=== PATIENT | male | born 1930 | race Caucasian/White ===

== ENCOUNTER 2017-01-30 19:32 | Emergency (ER) | payer MEDICARE, OTHER ==
[2017-01-30 19:52] VITALS: BP 132/76
--- NOTE | 2017-01-30 20:04 | EDM.PDOC ---
ED HPI Trauma - General Chief Complaint: Upper Extremity Injury/Pain Stated Complaint: RIGHT HAND INJURY Time Seen by Provider: 01/30/17 19:59 Source: Reports: Patient History Limitations: Reports: No limitations - History of Present Illness INITIAL COMMENTS - FREE TEXT/NARRATIVE: 86-year-old male presents the ED for evaluation of injury to the dorsal left hand. He reports that he fell twice today injuring the dorsal aspect with associated bruising and swelling. He denies hurting any other body parts. To carry his head neck chest or knees. Days he uses a cane to help with his balance but his balance is becoming worse and his legs are getting weaker. Very prone to falling. Symptom Onset Date: 01/30/17 Symptom Onset Time: 14:00 Occurred When: this evening Occurred Where: home Method of Injury: fall Severity: moderate Pain/Injury Location: Reports: upper extremity, left (Left dorsal hand) Associated Symptoms: Reports: no other symptoms Allergies/ADRs: Allergies amoxicillin Allergy (Verified 01/30/17 19:52) Cannot Remember levofloxacin [From Levaquin] Allergy (Verified 01/30/17 19:52) Cannot Remember nitroglycerin Allergy (Verified 01/30/17 19:52) Cannot Remember sulfamethoxazole [From Bactrim] Allergy (Verified 01/30/17 19:52) Cannot Remember tramadol Allergy (Verified 01/30/17 19:52) Rash trimethoprim [From Bactrim] Allergy (Verified 01/30/17 19:52) Cannot Remember meperidine HCl [From Demerol] Adverse Reaction (Verified 01/30/17 19:52) Nausea Home Medications: Ambulatory Orders Amitriptyline [Elavil] 20 mg PO BEDTIME 05/02/16 [Confirmed 05/02/16] Aspirin 81 mg PO DAILY 05/02/16 [Confirmed 05/02/16] B Complex With Vitamin C [B-Complex with C] 1 tab PO BEDTIME 05/02/16 [ Confirmed 05/02/16] ClonazePAM [KlonoPIN] 0.5 mg PO BEDTIME 05/02/16 [Confirmed 05/02/16] Clopidogrel [Plavix] 75 mg PO DAILY 05/02/16 [Confirmed 05/02/16] Docusate Sodium [Stool Softener] 100 mg PO BID 05/02/16 [Confirmed 05/02/16] Gabapentin [Neurontin] 200 mg PO TID 05/02/16 [Confirmed 05/02/16] Lactobacillus Acidophilus [Acidophilus] 1 cap PO BEDTIME 05/02/16 [Confirmed 10/17] Levothyroxine 0 mcg PO DAILY 05/02/16 [Confirmed 05/02/16] Lutein [Lutein] 10 mg PO DAILY 05/02/16 [Confirmed 05/02/16] Magnesium 0 mg PO DAILY 05/02/16 [Confirmed 05/02/16] Multivitamin [Multivitamins] 1 cap PO DAILY 05/02/16 [Confirmed 05/02/16] Naproxen Sodium [Aleve] 220 mg PO BID 05/02/16 [Confirmed 05/02/16] Pantoprazole [Protonix] 40 mg PO DAILY 05/02/16 [Confirmed 05/02/16] Pravastatin [Pravachol] 0 mg PO DAILY 05/02/16 [Confirmed 05/02/16] Prevagen 0 mg PO DAILY 05/02/16 [Confirmed 05/02/16] Statinzyme 1 tab PO BEDTIME 05/02/16 [Confirmed 05/02/16] amLODIPine [Norvasc] 2.5 mg PO DAILY 05/02/16 [Confirmed 05/02/16] Past Medical History Other HEENT History: Please see Health History scanned in chart. Cardiovascular History: Reports: High cholesterol, Hypertension Gastrointestinal History: Reports: Chronic constipation Neurological History: Reports: Alzheimers disease (Organic brain disease.), CVA , Neuropathy, peripheral Other Neuro History: right side stroke. Endocrine/Metabolic History: Reports: Hypothyroidism Oncologic (Cancer) History: Reports: Bladder - Past Surgical History GI Surgical History: Reports: Appendectomy Social & Family History - Tobacco Use Smoking Status *Q: Never Smoker - Recreational Drug Use Recreational Drug Use: No - Living Situation & Occupation Living situation: Reports: Occupation: retired Review of Systems - Review of Systems Review Of Systems: See Below Constitutional: Reports: no symptoms Eyes: Reports: other (Vision is poor.) Ears: Reports: no symptoms Nose: Reports: no symptoms Mouth/Throat: Reports: no symptoms Respiratory: Reports: Shortness of Breath. Denies: Wheezing (On exertion), Pleuritic Chest Pain, Cough, Sputum Cardiovascular: Denies: chest pain, edema, irregular heart rate, lightheadedness GI/Abdominal: Reports: No symptoms, Constipation (No problems with constipation) Genitourinary: Reports: other (Urinary frequency.) Musculoskeletal: Reports: shoulder pain, back pain, joint pain (Knees and hips at times.) Skin: Reports: other (Current swelling dorsal left hand.) Neurological: Reports: Pre-Existing Deficit, Difficulty Walking, Gait Disturbance (Off balance.). Denies: Paresthesia, Syncope (Previous CVA.), Tingling, Weakness Psychiatric: Reports: no symptoms Trauma Exam - Physical Exam Exam: See Below Exam Limited By: No limitations General Appearance: Reports: alert, WD/WN, no apparent distress Head: Reports: atraumatic, normocephalic Throat/Mouth: Reports: Normal inspection, Normal lips, Normal teeth, Normal oropharynx Neck: Reports: non-tender, full range of motion, normal alignment, normal inspection Respiratory Exam: Reports: no respiratory distress, lungs clear, normal breath sounds, no accessory muscle use Cardiovascular: Reports: regular rate, rhythm, no edema GI/Abdominal: Reports: normal bowel sounds, soft, non tender, no organomegaly Extremities: Reports: other (Injuries to the dorsal aspect of his left hand. He has 3 areas of large ecchymoses. One area of skin tear. Approximately 1 cm x 1 cm. It is very superficial. Covered with bandage present. No active bleeding.) Neurologic: Reports: no motor/sensory deficits, alert, normal mood/affect, oriented x 3 Skin: Reports: Normal color, Warm/dry - Buddy Coma Score Best Eye Response (Buddy): (4) open spontaneously Best Verbal Response (Buddy): (5) oriented Best Motor Response (Buddy): (6) obeys commands Buddy Total: 15 Course - Vital Signs Last Recorded V/S: Last Vital Signs Temp 36.3 C 01/30/17 19:50 Pulse 84 01/30/17 19:50 Resp 18 01/30/17 19:50 BP 132/76 01/30/17 19:50 Pulse Ox 97 01/30/17 19:50 - Orders/Labs/Meds Orders: Active Orders 24 hr Category Date Time Status Hand Comp Min 3V Lt [CR] Stat Exams 01/30/17 19:59 Taken - Radiology Interpretation Free Text/Narrative:: 86-year-old male presents the ED after falling and injuring his left dorsal hand today. He did a couple of times a week not sure how he injured it for the most part. This blunt trauma against an object primarily. He can make a fist however. Swelling is to the dorsal aspect of hand no evidence of injuries to the wrist. Pain is mostly located over the second metacarpal. X-ray of the hand to be obtained. - Re-Assessments/Exams Free Text/Narrative Re-Assessment/Exam: 01/30/17 20:30 x-ray of his left hand reveals osteopenic bones but no fractures identified. His tetanus toxoid is up to date. Departure - Departure Time of Disposition: 20:38 Disposition: Home, Self-Care 01 Condition: fair Clinical Impression: Contusion of multiple sites of left hand and fingers Qualifiers: Encounter type: initial encounter Qualified Code(s): S60.222A - Contusion of left hand, initial encounter Referrals: Maurisio Perry MD [Primary Care Provider] - Forms: ED Department Discharge Additional Instructions: Evaluation in the emergency department today in regards to blunt trauma to the dorsal aspect of the left hand today. Total areas of bruising appreciated and a superficial 1 cm x 1 cm skin tear in the mid aspect of the dorsal hand. X-ray of the hand was done to ensure no bony injuries and no fractures were identified. Treatment is to daily cleanse the wound with soap and water and then apply topical antibiotic such as bacitracin or Polysporin to the once daily and cover with a bandage to keep clean until healed. This will likely be 7 or 8 days. - My Orders Last 24 Hours: My Active Orders 01/30/17 19:59 Hand Comp Min 3V Lt [CR] Stat - Assessment/Plan Last 24 Hours: My Active Orders 01/30/17 19:59 Hand Comp Min 3V Lt [CR] Stat
--- NOTE | 2017-01-31 07:10 | CR ---
Left hand: Four views of the left hand were obtained. Comparison: No previous left hand exam. No fracture, dislocation or other bony abnormality is seen. Impression: 1. No abnormality is identified on left hand study. Diagnostic code #1
== END 2017-01-30 20:48 | disposition home or self-care (01) ==
LOC: JD.ED 19:32
DX: S60.222A Contusion of left hand, initial encounter (principal); E78.00 Pure hypercholesterolemia, unspecified; I10 Essential (primary) hypertension; G30.9 Alzheimer's disease, unspecified; Z86.73 Personal history of transient ischemic attack (TIA), and cerebral infarction without residual deficits; E03.9 Hypothyroidism, unspecified; Z79.82 Long term (current) use of aspirin; Z79.899 Other long term (current) drug therapy; Z88.8 Allergy status to other drugs, medicaments and biological substances; Z90.49 Acquired absence of other specified parts of digestive tract; Z88.1 Allergy status to other antibiotic agents; Z88.5 Allergy status to narcotic agent; Z88.2 Allergy status to sulfonamides; W19.XXXA Unspecified fall, initial encounter; Y92.009 Unspecified place in unspecified non-institutional (private) residence as the place of occurrence of the external cause
CPT/HCPCS: 73130-26-LT; 73130-LT; 99282; 99284

== ENCOUNTER 2017-01-31 18:57 | Emergency (ER) | payer MEDICARE, OTHER ==
[2017-01-31 19:07] VITALS: BP 141/79
[2017-01-31] MEDS ORDERED: Cephalexin 500 MG Cap PO ONE (19:24)
--- NOTE | 2017-01-31 19:25 | EDM.PDOC ---
ED HPI Trauma - General Chief Complaint: Upper Extremity Injury/Pain Stated Complaint: REPEAT VISIT FOR LEFT HAND INJURY Time Seen by Provider: 01/31/17 19:09 Source: Reports: Patient, Family (Spouse), RN notes reviewed - History of Present Illness INITIAL COMMENTS - FREE TEXT/NARRATIVE: 86-year-old gentleman fell in the bathroom yesterday afternoon about 28 hours ago injuring his left hand. He did suffer a small superficial laceration. He had a fair amount of bruising so they did come into the ED yesterday to have that checked out. The hand was x-rayed and there was no fracture. Today they returned because of increased redness and increased bruising. The pain is almost gone. The laceration is a bit open but so far there's been no drainage. Allergies/ADRs: Allergies amoxicillin Allergy (Verified 01/31/17 19:05) Cannot Remember levofloxacin [From Levaquin] Allergy (Verified 01/31/17 19:05) Cannot Remember nitroglycerin Allergy (Verified 01/31/17 19:05) Cannot Remember sulfamethoxazole [From Bactrim] Allergy (Verified 01/31/17 19:05) Cannot Remember tramadol Allergy (Verified 01/31/17 19:05) Rash trimethoprim [From Bactrim] Allergy (Verified 01/31/17 19:05) Cannot Remember meperidine HCl [From Demerol] Adverse Reaction (Verified 01/31/17 19:05) Nausea Home Medications: Ambulatory Orders Amitriptyline [Elavil] 20 mg PO BEDTIME 05/02/16 [Confirmed 05/02/16] Aspirin 81 mg PO DAILY 05/02/16 [Confirmed 05/02/16] B Complex With Vitamin C [B-Complex with C] 1 tab PO BEDTIME 05/02/16 [ Confirmed 05/02/16] ClonazePAM [KlonoPIN] 0.5 mg PO BEDTIME 05/02/16 [Confirmed 05/02/16] Clopidogrel [Plavix] 75 mg PO DAILY 05/02/16 [Confirmed 05/02/16] Docusate Sodium [Stool Softener] 100 mg PO BID 05/02/16 [Confirmed 05/02/16] Gabapentin [Neurontin] 200 mg PO TID 05/02/16 [Confirmed 05/02/16] Lactobacillus Acidophilus [Acidophilus] 1 cap PO BEDTIME 05/02/16 [Confirmed 10/17] Levothyroxine 0 mcg PO DAILY 05/02/16 [Confirmed 05/02/16] Lutein [Lutein] 10 mg PO DAILY 05/02/16 [Confirmed 05/02/16] Magnesium 0 mg PO DAILY 05/02/16 [Confirmed 05/02/16] Multivitamin [Multivitamins] 1 cap PO DAILY 05/02/16 [Confirmed 05/02/16] Naproxen Sodium [Aleve] 220 mg PO BID 05/02/16 [Confirmed 05/02/16] Pantoprazole [Protonix] 40 mg PO DAILY 05/02/16 [Confirmed 05/02/16] Pravastatin [Pravachol] 0 mg PO DAILY 05/02/16 [Confirmed 05/02/16] Prevagen 0 mg PO DAILY 05/02/16 [Confirmed 05/02/16] Statinzyme 1 tab PO BEDTIME 05/02/16 [Confirmed 05/02/16] amLODIPine [Norvasc] 2.5 mg PO DAILY 05/02/16 [Confirmed 05/02/16] Cephalexin 500 mg PO Q8HR #14 capsule 01/31/17 Past Medical History Other HEENT History: Please see Health History scanned in chart. Cardiovascular History: Reports: High cholesterol, Hypertension Gastrointestinal History: Reports: Chronic constipation Neurological History: Reports: Alzheimers disease, CVA, Neuropathy, peripheral Other Neuro History: right side stroke. Endocrine/Metabolic History: Reports: Hypothyroidism Oncologic (Cancer) History: Reports: Bladder - Past Surgical History GI Surgical History: Reports: Appendectomy Social & Family History - Tobacco Use Smoking Status *Q: Never Smoker - Caffeine Use Caffeine Use: Reports: Coffee - Recreational Drug Use Recreational Drug Use: No - Living Situation & Occupation Living situation: Reports: Occupation: retired Review of Systems - Review of Systems Review Of Systems: See Below Constitutional: Denies: chills, fever Mouth/Throat: Reports: no symptoms Respiratory: Reports: No Symptoms Cardiovascular: Denies: chest pain GI/Abdominal: Denies: Abdominal pain, Nausea, Vomiting Skin: Reports: bruising (Left hand), erythema (Left hand) Neurological: Reports: No Symptoms Trauma Exam - Physical Exam Exam: See Below General Appearance: Reports: alert, no apparent distress Head: Reports: atraumatic Throat/Mouth: Reports: Normal inspection Respiratory Exam: Reports: no respiratory distress Cardiovascular: Reports: regular rate, rhythm Extremities: Reports: other (Small superficial mildly keeping laceration dorsum of left hand. Surrounded by moderate erythema and does moderate ecchymosis spreading over the dorsum of the hand as well. No major swelling or tenderness. Good finger range of motion. No proximal streaking. No drainage at this time.) Course - Vital Signs Last Recorded V/S: Last Vital Signs Temp 97.9 F 01/31/17 19:05 Pulse 84 01/31/17 19:05 Resp 18 01/31/17 19:05 BP 141/79 H 01/31/17 19:05 Pulse Ox 96 01/31/17 19:05 - Orders/Labs/Meds Meds: Medications Discontinued Medications Generic Name Dose Route Start Last Admin Trade Name Blanca PRN Reason Stop Dose Admin Cephalexin 500 mg 01/31/17 19:24 01/31/17 19:31 Keflex PO 01/31/17 19:25 500 mg ONETIME ONE Administration - Re-Assessments/Exams Free Text/Narrative Re-Assessment/Exam: 01/31/17 20:04 Increased bruising is to be expected. I discussed this with patient and his . Is moderate erythema around the laceration is well, difficult to exclude a small component of early cellulitis. We will put him on cephalexin 500 mg 3 times a day for 5 days. Departure - Departure Time of Disposition: 19:35 Disposition: Home, Self-Care 01 Condition: fair Clinical Impression: Cellulitis of hand Hand contusion Qualifiers: Encounter type: initial encounter Laterality: left Qualified Code(s): S60.222A - Contusion of left hand, initial encounter Prescriptions: Cephalexin 500 mg PO Q8HR #14 capsule Instructions: Hand Contusion, [id number], Cellulitis, Adult, [id number] Referrals: Maurisio Perry MD [Primary Care Provider] - Forms: ED Department Discharge Additional Instructions: Continue antibiotic ointment 3 times daily. Stop using the hydrogen peroxide. Dosage of cephalexin antibiotic has been given here this evening in the ED. Prescription has been sent electronically to the medicines dropped to continue 3 times daily for the next 5 days. Followup clinic as needed, return to ED as needed. The bruising and redness present will take about 10-14 days to go away.
== END 2017-01-31 20:17 | disposition home or self-care (01) ==
LOC: JD.ED 18:57
DX: L03.114 Cellulitis of left upper limb (principal); S60.222D Contusion of left hand, subsequent encounter; W19.XXXD Unspecified fall, subsequent encounter; Y92.89 Other specified places as the place of occurrence of the external cause; I10 Essential (primary) hypertension; E78.00 Pure hypercholesterolemia, unspecified; G30.9 Alzheimer's disease, unspecified; F02.80 Dementia in other diseases classified elsewhere, unspecified severity, without behavioral disturbance, psychotic disturbance, mood disturbance, and anxiety; E03.9 Hypothyroidism, unspecified; Z86.73 Personal history of transient ischemic attack (TIA), and cerebral infarction without residual deficits; Z90.49 Acquired absence of other specified parts of digestive tract; Z79.02 Long term (current) use of antithrombotics/antiplatelets; Z79.82 Long term (current) use of aspirin; Z79.899 Other long term (current) drug therapy; Z88.1 Allergy status to other antibiotic agents; Z88.2 Allergy status to sulfonamides; Z88.5 Allergy status to narcotic agent; Z88.8 Allergy status to other drugs, medicaments and biological substances
CPT/HCPCS: 99283; A9270

== ENCOUNTER 2017-02-09 16:25 | Emergency (ER) | payer MEDICARE, OTHER ==
[2017-02-09 16:41] VITALS: BP 137/76
--- NOTE | 2017-02-09 17:52 | EDM.PDOC ---
ED HPI GENERAL MEDICAL PROBLEM - General Chief Complaint: Back Pain or Injury Stated Complaint: FALL- LEFT SIDE Time Seen by Provider: 02/09/17 16:52 Source of Information: Reports: Patient, Family (), RN notes reviewed History Limitations: Reports: Other (Dementia) - History of Present Illness INITIAL COMMENTS - FREE TEXT/NARRATIVE: The patient states that he tripped and fell around 17:30 this evening, as he was entering his house from the porch. He believes that he tripped over the threshold, landing on his left side. He states that the cane he was using broke , although he does not believe that he landed on his cane. He presents with pain to the left side of his abdomen. He is unable to characterize it. He states that the pain is better if he remains still, worse if he palpates it. No recent nausea, vomiting, constipation, or diarrhea. 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 The patient denies any other injury today. Left Back Pain Score (Numeric/FACES): 8 - Related Data Allergies Allergy/AdvReac Type Severity Reaction Status Date / Time amoxicillin Allergy Cannot Verified 01/31/17 19:05 Remember levofloxacin [From Levaquin] Allergy Cannot Verified 01/31/17 19:05 Remember nitroglycerin Allergy Cannot Verified 01/31/17 19:05 Remember sulfamethoxazole Allergy Cannot Verified 01/31/17 19:05 [From Bactrim] Remember tramadol Allergy Rash Verified 01/31/17 19:05 trimethoprim [From Bactrim] Allergy Cannot Verified 01/31/17 19:05 Remember meperidine HCl [From Demerol] AdvReac Nausea Verified 01/31/17 19:05 Home Meds: Home Meds Amitriptyline [Elavil] 20 mg PO BEDTIME 05/02/16 [History] Aspirin 81 mg PO DAILY 05/02/16 [History] B Complex With Vitamin C [B-Complex with C] 1 tab PO BEDTIME 05/02/16 [History] ClonazePAM [KlonoPIN] 0.5 mg PO BEDTIME 05/02/16 [History] Clopidogrel [Plavix] 75 mg PO DAILY 05/02/16 [History] Docusate Sodium [Stool Softener] 100 mg PO BID 05/02/16 [History] Gabapentin [Neurontin] 200 mg PO TID 05/02/16 [History] Lactobacillus Acidophilus [Acidophilus] 1 cap PO BEDTIME 05/02/16 [History] Levothyroxine 0 mcg PO DAILY 05/02/16 [History] Lutein [Lutein] 10 mg PO DAILY 05/02/16 [History] Magnesium 0 mg PO DAILY 05/02/16 [History] Multivitamin [Multivitamins] 1 cap PO DAILY 05/02/16 [History] Naproxen Sodium [Aleve] 220 mg PO BID 05/02/16 [History] Pantoprazole [Protonix] 40 mg PO DAILY 05/02/16 [History] Pravastatin [Pravachol] 0 mg PO DAILY 05/02/16 [History] Prevagen 0 mg PO DAILY 05/02/16 [History] Statinzyme 1 tab PO BEDTIME 05/02/16 [History] amLODIPine [Norvasc] 2.5 mg PO DAILY 05/02/16 [History] Cephalexin 500 mg PO Q8HR #14 capsule 01/31/17 [Rx] Past Medical History Cardiovascular History: Reports: High cholesterol, Hypertension Neurological History: Reports: Alzheimers disease, CVA (residual left hemiparesis), Neuropathy, peripheral Endocrine/Metabolic History: Reports: Hypothyroidism Oncologic (Cancer) History: Reports: Bladder - Past Surgical History GI Surgical History: Reports: Appendectomy Social & Family History - Tobacco Use Smoking Status *Q: Never Smoker - Caffeine Use Caffeine Use: Reports: Coffee, Soda, Tea - Alcohol Use Alcohol Use History: No - Recreational Drug Use Recreational Drug Use: No - Living Situation & Occupation Living situation: Reports: , with spouse Occupation: retired ED ROS GENERAL - Review of Systems Review Of Systems: See Below Constitutional: Reports: No Symptoms HEENT: Reports: No Symptoms Respiratory: Reports: No Symptoms Cardiovascular: Reports: No Symptoms Endocrine: Reports: No Symptoms GI/Abdominal: Reports: No Symptoms : Reports: No Symptoms Musculoskeletal: Reports: No Symptoms Skin: Reports: No Symptoms Neurological: Reports: No Symptoms Psychiatric: Reports: No Symptoms Hematologic/Lymphatic: Reports: No Symptoms Immunologic: Reports: No Symptoms ED EXAM, GENERAL - Physical Exam Exam: See Below Exam Limited By: No Limitations General Appearance: Alert, WD/WN, No Apparent Distress Eye Exam: Bilateral Eye: Normal Inspection Ears: Normal External Exam, Hearing Grossly Normal Ear Exam: Bilateral Ear: Auricle Normal Nose: Normal Inspection, No Blood Throat/Mouth: Normal Inspection, Normal Lips, Normal Voice, No Airway Compromise Head: Atraumatic, Normocephalic Neck: Normal Inspection, Full Range of Motion Respiratory/Chest: No Respiratory Distress, Lungs Clear, Normal Breath Sounds, No Accessory Muscle Use Cardiovascular: Normal Peripheral Pulses, Regular Rate, Rhythm, No Gallop, No JVD, No Murmur, No Rub Peripheral Pulses: 4+: Radial (L), Radial (R) GI/Abdominal: Normal Bowel Sounds, Soft, No Organomegaly, No Distention, No Abnormal Bruit, No Mass, Other (Proximal the 8 cm x 5 cm oval ecchymosis with mild swelling noted on the left side of the abdomen, just over the inferior aspect of the left ribs. This is tender to palpation. The remainder of the abdominal exam is benign.) (Male) Exam: Deferred Rectal (Males) Exam: Deferred Back Exam: Normal Inspection, Full Range of Motion, NT Extremities: Normal Inspection, Normal Range of Motion, No Pedal Edema, Normal Capillary Refill Neurological: Alert, Oriented, Memory Loss Remote Events Psychiatric: Normal Affect Skin Exam: Warm, Dry, Intact, Normal Color, No Rash Lymphatic: No Adenopathy Course - Vital Signs Last Recorded V/S: Last Vital Signs Temp 36.5 C 02/09/17 16:39 Pulse 76 02/09/17 16:39 Resp 20 02/09/17 16:39 BP 137/76 02/09/17 16:39 Pulse Ox 98 02/09/17 16:39 - Orders/Labs/Meds Orders: Active Orders 24 hr Category Date Time Status Abdomen Pelvis w Cont [CT] Stat Exams 02/09/17 17:50 Taken Sodium Chloride 0.9% [Normal Saline] 1,000 ml Med 02/09/17 18:00 Active IV ASDIRECTED Sodium Chloride 0.9% [Saline Flush] Med 02/09/17 19:23 Active 10 ml FLUSH ONETIME PRN Medication Orders Sodium Chloride (Normal Saline) 1,000 mls @ 150 mls/hr IV ASDIRECTED JORJE Last Admin: 02/09/17 18:37 Dose: 150 mls/hr Sodium Chloride (Saline Flush) 10 ml FLUSH ONETIME PRN PRN Reason: Keep Vein Open Last Admin: 02/09/17 19:41 Dose: 10 ml Labs: Laboratory Tests 02/09/17 02/09/17 Range/Units 18:15 18:15 WBC 10.69 H (4.23-9.07) K/mm3 RBC 4.60 L (4.63-6.08) M/mm3 Hgb 14.3 (13.7-17.5) gm/L Hct 40.9 (40.1-51.0) % MCV 88.9 (79.0-92.2) fl MCH 31.1 (25.7-32.2) pg MCHC 35.0 (32.2-35.5) g/dl RDW Std Deviation 40.9 (35.1-43.9) fL Plt Count 176 (163-337) K/mm3 MPV 12.1 (9.4-12.3) fl Neutrophils % (Manual) 82 H (40-60) % Band Neutrophils % 0 (0-10) % Lymphocytes % (Manual) 8 L (20-40) % Atypical Lymphs % 1 % Monocytes % (Manual) 8 (2-10) % Eosinophils % (Manual) 1 (0.8-7.0) % Basophils % (Manual) 0 L (0.2-1.2) Platelet Estimate Adequate Plt Morphology Comment Normal RBC Morph Comment Normal Sodium 138 (136-145) mEq/L Potassium 4.4 (3.5-5.1) mEq/L Chloride 103 (98-107) mEq/L Carbon Dioxide 30 (21-32) mEq/L Anion Gap 9.4 (5-15) BUN 15 (7-18) mg/dL Creatinine 1.0 (0.7-1.3) mg/dL Est Cr Clr Drug Dosing TNP Estimated GFR (MDRD) > 60 (>60) mL/min BUN/Creatinine Ratio 15.0 (14-18) Glucose 102 (83-115) mg/dL Calcium 9.0 (8.5-10.1) mg/dL Total Bilirubin 0.7 (0.2-1.0) mg/dL AST 17 (15-37) U/L ALT 18 (16-63) U/L Alkaline Phosphatase 74 (46-116) U/L Total Protein 7.2 (6.4-8.2) g/dl Albumin 3.9 (3.4-5.0) g/dl Globulin 3.3 gm/dL Albumin/Globulin Ratio 1.2 (1-2) Meds: Medications Generic Name Dose Route Start Last Admin Trade Name Freq PRN Reason Stop Dose Admin Sodium Chloride 1,000 mls @ 150 mls/hr 02/09/17 18:00 02/09/17 18:37 Normal Saline IV 150 mls/hr ASDIRECTED JORJE Administration Sodium Chloride 10 ml 02/09/17 19:23 02/09/17 19:41 Saline Flush FLUSH 10 ml ONETIME PRN Administration Keep Vein Open Discontinued Medications Generic Name Dose Route Start Last Admin Trade Name Freq PRN Reason Stop Dose Admin Diatrizoate Meglum/Diatrizoate Sod 90 ml 02/09/17 19:23 02/09/17 19:40 Gastrografin 37% PO 02/09/17 19:24 90 ml ONETIME ONE Administration Hydromorphone HCl 0.5 mg 02/09/17 19:56 02/09/17 20:01 Dilaudid IVPUSH 02/09/17 19:57 0.5 mg ONETIME ONE Administration Iopamidol 100 ml 02/09/17 19:23 02/09/17 19:40 Isovue-370 (76%) IVPUSH 02/09/17 19:24 100 ml ONETIME ONE Administration - Radiology Interpretation Free Text/Narrative:: CT of the abdomen and pelvis with IV contrast is read as: 1. Large abnormality posteriorly within the right kidney. Measurements as noted above. This is a significant interval change from prior study. Differential includes hemorrhagic cyst as well as necrotic renal cell carcinoma. MRI with contrast would be needed to differentiate if clinically indicated and if patient has no contraindication to MRI. 2. Other incidental findings as noted above. Nothing acute is otherwise seen on CT study of the abdomen and pelvis. - Re-Assessments/Exams Free Text/Narrative Re-Assessment/Exam: 02/09/17 17:52 The patient was offered pain medication, but refused. 02/09/17 19:56 The patient is now requesting something for pain. I have ordered Dilaudid 0.5 mg. 02/09/17 20:[address] scan indicates a significant abnormality within the right kidney, either a hemorrhagic cyst or necrotic renal cell carcinoma, however, this is an incidental finding, as the injury to the patient is to his left anterior abdomen. I believe we can safely discharge the patient home with a recommendation to followup with his PCP, Dr. Perry, to address the right kidney abnormality. 02/09/17 21:05 The above was discussed with the patient, his , and son. They are agreeable with this plan. Departure - Departure Time of Disposition: 21:05 Disposition: Home, Self-Care 01 Condition: fair Clinical Impression: Abdominal wall contusion, Abnormal finding on diagnostic imaging of right kidney - Discharge Information Referrals: Maurisio Perry MD [Primary Care Provider] - Forms: ED Department Discharge Additional Instructions: You were seen in the emergency room for left abdominal pain after falling at home today. Workup in the ER included blood work and a CT scan of your abdomen and pelvis. The CT scan findings only a bruise to your abdominal wall, with no new injury, however, it also finds a significant abnormality to your right kidney. This abnormality is not the results of your fall, however, it does need to be investigated further. Take [id number] ibuprofen 2-3 tablets (400-600 mg) every 8 hours, with food, as needed for discomfort. Followup with your PCP, Dr. Perry, at the next available appointment, for further evaluation of your right kidney. If any other problems, please do not hesitate to return to the ER. - My Orders Last 24 Hours: My Active Orders 02/09/17 17:50 Abdomen Pelvis w Cont [CT] Stat 02/09/17 18:00 Sodium Chloride 0.9% [Normal Saline] 1,000 ml IV ASDIRECTED 02/09/17 19:23 Sodium Chloride 0.9% [Saline Flush] 10 ml FLUSH ONETIME PRN - Assessment/Plan Last 24 Hours: My Active Orders 02/09/17 17:50 Abdomen Pelvis w Cont [CT] Stat 02/09/17 18:00 Sodium Chloride 0.9% [Normal Saline] 1,000 ml IV ASDIRECTED 02/09/17 19:23 Sodium Chloride 0.9% [Saline Flush] 10 ml FLUSH ONETIME PRN
[2017-02-09] MEDS ORDERED: Sodium Chloride 0.9% 1,000 ML IV SCH (18:00)
[2017-02-09] MEDS ORDERED: Iopamidol 755 Mg/ML 100 ML Bottle IVPUSH ONE (19:23)
[2017-02-09] MEDS ORDERED: Diatrizoate Meglumine/Diatrizoate Sodium 37% 120 ML Bottle PO ONE (19:23)
[2017-02-09] MEDS ORDERED: Sodium Chloride 0.9% 10 ML Syringe FLUSH PRN (19:23)
[2017-02-09] MEDS ORDERED: HYDROmorphone 0.5 MG/0.5 ML Syringe IVPUSH ONE (19:56)
--- NOTE | 2017-02-10 06:20 | CT ---
CT abdomen and pelvis Technique: Multiple axial sections were obtained from above the dome of diaphragm inferiorly through the pubic symphysis. Delayed images were obtained through the bladder. Additional delayed images were obtained from above the kidneys inferiorly to the bottom of the kidneys. Comparison: Previous CT exam of 05/25/12. Findings: Visualized lung bases shows nothing acute. Liver shows no focal abnormality. Gallbladder shows no calcified gallstones. Spleen appears within normal limits. Adrenal glands show no nodule. Right kidney shows a large abnormality posteriorly measuring 9.5 cm x 7.8 cm. This represents a significant interval change from prior CT exam. Uncertain if this represents a hemorrhagic cyst or represents a necrotic renal cell carcinoma. Cyst noted off the more inferior right kidney measuring 3.3 cm. Left kidney is unremarkable. Pancreas appears within normal limits for age. Aorta shows no aneurysmal dilatation. No retroperitoneal adenopathy or mesenteric abnormalities are seen. No pelvic mass or adenopathy is seen. Mild increased stool is noted throughout colon. No free fluid or inflammatory change is seen. Delayed images shows contrast within the distal ureters and bladder. No findings of appendicitis are seen. Bone window settings were reviewed which shows diffuse degenerative spurring throughout the spine with flowing osteophytes being seen within the lower thoracic spine. Multiple levels of vacuum disc phenomena are seen. Diffuse disc space narrowing and disc calcification noted within the lower thoracic spine. Impression: 1. Large abnormality posteriorly within the right kidney. Measurements as noted above. This is a significant interval change from prior study. Differential includes hemorrhagic cyst as well as necrotic renal cell carcinoma. MRI with contrast would be needed to differentiate if clinically indicated and if patient has no contraindication to MRI. 2. Other incidental findings as noted above. Nothing acute is otherwise seen on CT study of the abdomen and pelvis. Diagnostic code #9
== END 2017-02-09 21:39 | disposition home or self-care (01) ==
LOC: JD.ED 16:25
DX: S30.1XXA Contusion of abdominal wall, initial encounter (principal); W18.30XA Fall on same level, unspecified, initial encounter; Y93.01 Activity, walking, marching and hiking; Y92.018 Other place in single-family (private) house as the place of occurrence of the external cause; I69.354 Hemiplegia and hemiparesis following cerebral infarction affecting left non-dominant side; I15.9 Secondary hypertension, unspecified; G30.9 Alzheimer's disease, unspecified; F02.80 Dementia in other diseases classified elsewhere, unspecified severity, without behavioral disturbance, psychotic disturbance, mood disturbance, and anxiety; Z85.51 Personal history of malignant neoplasm of bladder
CPT/HCPCS: 36415; 74177; 80053; 85025; 96361; 96374; 99284; J1170; J7040; J7050; Q9963; Q9967

== ENCOUNTER 2017-02-10 22:06 | Emergency (ER) | payer MEDICARE, OTHER ==
[2017-02-10 22:18] VITALS: BP 153/79
[2017-02-10] MEDS ORDERED: Sodium Chloride 0.9% 10 ML Syringe FLUSH PRN (22:21)
[2017-02-10] MEDS ORDERED: Lactated Ringers 1,000 ML IV SCH (22:30)
[2017-02-10] MEDS ORDERED: Sodium Chloride 0.9% 10 ML Syringe FLUSH ONE (22:46)
[2017-02-10] MEDS ORDERED: Iopamidol 612 MG/ML 150 ML Bottle IVPUSH ONE (22:46)
--- NOTE | 2017-02-11 00:06 | EDM.PDOC ---
ED HPI GENERAL MEDICAL PROBLEM - General Chief Complaint: Head Injury Stated Complaint: [facility] Time Seen by Provider: 02/10/17 22:19 Source of Information: Reports: Patient, EMS, Family History Limitations: Reports: Altered Mental Status - History of Present Illness INITIAL COMMENTS - FREE TEXT/NARRATIVE: The patient was outside in his yard and he fell and hit his head. He had no LOC. He was a little confused but that is normal for him. He has a laceration over his left eye. His tetanus is up to date. He has pain to the left chest and left abdomen. He has no hip or wrist pain. Onset: Sudden Duration: Minutes: Location: Reports: Face, Chest, Abdomen Quality: Reports: Sharp Severity: Moderate Improves with: Reports: None Worsens with: Reports: None Context: Reports: Activity (He was outside walking with his walker) Associated Symptoms: Reports: Chest Pain. Denies: Nausea/Vomiting, Shortness of Breath Left Abdomen Pain Score (Numeric/FACES): 3 - Related Data Allergies Allergy/AdvReac Type Severity Reaction Status Date / Time amoxicillin Allergy Cannot Verified 02/10/17 22:18 Remember levofloxacin [From Levaquin] Allergy Cannot Verified 02/10/17 22:18 Remember nitroglycerin Allergy Cannot Verified 02/10/17 22:18 Remember sulfamethoxazole Allergy Cannot Verified 02/10/17 22:18 [From Bactrim] Remember tramadol Allergy Rash Verified 02/10/17 22:18 trimethoprim [From Bactrim] Allergy Cannot Verified 02/10/17 22:18 Remember meperidine HCl [From Demerol] AdvReac Nausea Verified 02/10/17 22:18 Home Meds: Home Meds Amitriptyline [Elavil] 20 mg PO BEDTIME 05/02/16 [History] Aspirin 81 mg PO DAILY 05/02/16 [History] ClonazePAM [KlonoPIN] 0.5 mg PO BEDTIME 05/02/16 [History] Clopidogrel [Plavix] 75 mg PO DAILY 05/02/16 [History] Gabapentin [Neurontin] 200 mg PO TID 05/02/16 [History] Multivitamin [Multivitamins] 1 cap PO DAILY 05/02/16 [History] Naproxen Sodium [Aleve] 220 mg PO BID 05/02/16 [History] Pantoprazole [Protonix] 40 mg PO DAILY 05/02/16 [History] Pravastatin [Pravachol] 0 mg PO DAILY 05/02/16 [History] Statinzyme 1 tab PO BEDTIME 05/02/16 [History] amLODIPine [Norvasc] 2.5 mg PO DAILY 05/02/16 [History] Past Medical History Other HEENT History: Please see Health History scanned in chart. Cardiovascular History: Reports: High Cholesterol, Hypertension Gastrointestinal History: Reports: Chronic Constipation Neurological History: Reports: Alzheimers Disease, CVA, Neuropathy, Peripheral Other Neuro History: right side stroke. Endocrine/Metabolic History: Reports: Hypothyroidism Oncologic (Cancer) History: Reports: Bladder - Past Surgical History GI Surgical History: Reports: Appendectomy Social & Family History - Tobacco Use Smoking Status *Q: Never Smoker - Caffeine Use Caffeine Use: Reports: None - Recreational Drug Use Recreational Drug Use: No - Living Situation & Occupation Living situation: Reports: , with Spouse Occupation: Retired ED ROS GENERAL - Review of Systems Review Of Systems: See Below Constitutional: Reports: No Symptoms HEENT: Reports: Other (laceration to the left eyebrow) Respiratory: Reports: No Symptoms Cardiovascular: Reports: Chest Pain (Left side) Endocrine: Reports: No Symptoms GI/Abdominal: Reports: Abdominal Pain (Left side) : Reports: No Symptoms Musculoskeletal: Reports: No Symptoms ED EXAM, HEAD INJURY - Physical Exam Exam: See Below Exam Limited By: No Limitations General Appearance: Alert, No Apparent Distress Head: Other (0.5cm laceration to the left lateral eyebrow) Ears: Normal External Exam Nose: Normal Inspection Throat/Mouth: Normal Inspection Neck: Non-Tender, Normal Alignment, Normal Inspection Respiratory: No Respiratory Distress, Lungs Clear, Normal Breath Sounds Cardiovascular: Regular Rate, Rhythm, No Edema, No Murmur, Other (tenderness to the left lower chest) GI/Abdominal Exam (Abbreviated): Soft, No Mass, Tender (Tenderness to the left upper abdomen) Back Exam: Normal Inspection Extremities: No Evidence of Injury ED LACERATION/WOUND & JOSE ALBERTO PROC - Laceration/Wound Repair Left Face Lac/wound length in cm: 0.5 Appearance: superficial Skin prep: saline Exploration/Debridement/Repair: wound explored, in a bloodless field, explored to base Closed with: dermabond Tetanus status addressed: Yes Complications: No Course - Vital Signs Last Recorded V/S: Last Vital Signs Temp 97.6 F 05/12/17 22:08 Pulse 96 02/10/17 22:08 Resp 18 02/10/17 22:08 BP 153/79 H 02/10/17 22:08 Pulse Ox 95 02/10/17 22:08 - Orders/Labs/Meds Orders: Active Orders 24 hr Category Date Time Status Peripheral IV Care [RC] . DIRECTED Care 02/10/17 22:22 Active Cervical Spine wo Cont [CT] Stat Exams 02/10/17 22:20 Ordered Chest Abdomen Pelvis w Cont [CT] Stat Exams 02/10/17 22:21 Ordered Head wo Cont [CT] Stat Exams 02/10/17 22:20 Ordered Lactated Ringers [Ringers, Lactated] 1,000 ml Med 02/10/17 22:30 Active IV ASDIRECTED Sodium Chloride 0.9% [Saline Flush] Med 02/10/17 22:21 Active 10 ml FLUSH ASDIRECTED PRN Peripheral IV Insertion Adult [OM.PC] Stat Oth 02/10/17 22:21 Ordered Medication Orders Lactated Ringer's (Ringers, Lactated) 1,000 mls @ 125 mls/hr IV ASDIRECTED JORJE Last Admin: 02/10/17 22:35 Dose: 125 mls/hr Sodium Chloride (Saline Flush) 10 ml FLUSH ASDIRECTED PRN PRN Reason: Keep Vein Open Last Admin: 02/10/17 22:35 Dose: 10 ml Labs: Laboratory Tests 02/10/17 02/10/17 Range/Units 22:35 22:35 WBC 9.36 H (4.23-9.07) K/mm3 RBC 4.10 L (4.63-6.08) M/mm3 Hgb 12.7 L (13.7-17.5) gm/L Hct 36.6 L (40.1-51.0) % MCV 89.3 (79.0-92.2) fl MCH 31.0 (25.7-32.2) pg MCHC 34.7 (32.2-35.5) g/dl RDW Std Deviation 40.6 (35.1-43.9) fL Plt Count 191 (163-337) K/mm3 MPV 11.7 (9.4-12.3) fl Neut % (Auto) 70.9 H (34.0-67.9) % Lymph % (Auto) 14.1 L (21.8-53.1) % [place] % (Auto) 12.1 (5.3-12.2) % Eos % (Auto) 2.4 (0.8-7.0) Baso % (Auto) 0.1 (0.1-1.2) % Neut # (Auto) 6.64 H (1.78-5.38) K/mm3 Lymph # (Auto) 1.32 (1.32-3.57) K/mm3 [place] # (Auto) 1.13 H (0.30-0.82) K/mm3 Eos # (Auto) 0.22 (0.04-0.54) K/mm3 Baso # (Auto) 0.01 (0.01-0.08) K/mm3 Sodium 141 (136-145) mEq/L Potassium 3.8 (3.5-5.1) mEq/L Chloride 104 (98-107) mEq/L Carbon Dioxide 28 (21-32) mEq/L Anion Gap 12.8 (5-15) BUN 18 (7-18) mg/dL Creatinine 1.1 (0.7-1.3) mg/dL Est Cr Clr Drug Dosing TNP Estimated GFR (MDRD) > 60 (>60) mL/min BUN/Creatinine Ratio 16.4 (14-18) Glucose 189 H (83-115) mg/dL Calcium 8.5 (8.5-10.1) mg/dL Total Bilirubin 0.5 (0.2-1.0) mg/dL AST 16 (15-37) U/L ALT 16 (16-63) U/L Alkaline Phosphatase 74 (46-116) U/L Total Protein 6.5 (6.4-8.2) g/dl Albumin 3.3 L (3.4-5.0) g/dl Globulin 3.2 gm/dL Albumin/Globulin Ratio 1.0 (1-2) Lipase 103 (73-393) U/L Meds: Medications Generic Name Dose Route Start Last Admin Trade Name Freq PRN Reason Stop Dose Admin Lactated Ringer's 1,000 mls @ 125 mls/hr 02/10/17 22:30 02/10/17 22:35 Ringers, Lactated IV 125 mls/hr ASDIRECTED JORJE Administration Sodium Chloride 10 ml 02/10/17 22:21 02/10/17 22:35 Saline Flush FLUSH 10 ml ASDIRECTED PRN Administration Keep Vein Open Discontinued Medications Generic Name Dose Route Start Last Admin Trade Name Blanca PRN Reason Stop Dose Admin Iopamidol 150 ml 02/10/17 22:46 02/10/17 23:14 Isovue-300 (61%) IVPUSH 02/10/17 22:47 125 ml ONETIME ONE Administration Sodium Chloride 10 ml 02/10/17 22:46 02/10/17 23:14 Saline Flush FLUSH 02/10/17 22:47 10 ml ONETIME ONE Administration - Re-Assessments/Exams Free Text/Narrative Re-Assessment/Exam: 02/11/17 00:05 I ordered an IV LR, CTs of his head, neck, chest, abdomen and pelvis. I also ordered labs. 02/11/17 00:06 His CBC and CMP look good. The CT of his abdomen and pelvis shows no sign of acute traumatic sequelae to the abdomen and pelvis. Large renal call carcinoma right kidney. They family knows about this. It was recently discovered and he will be seeing Dr Perry early next week. The CT of his head shows chronic changes. No acute intracranial process. Question mild frontal soft tissue swelling. The CT of his chest shows potential mild subcutaneous contusion over the left chest. No other sign of thoracic injury. I closed his wound. I will discharge him home. Departure - Departure Time of Disposition: 00:10 Disposition: Home, Self-Care 01 Condition: good Clinical Impression: Mass of right kidney Fall Qualifiers: Encounter type: initial encounter Qualified Code(s): W19.XXXA - Unspecified fall, initial encounter Contusion of left chest wall Qualifiers: Encounter type: initial encounter Qualified Code(s): S20.212A - Contusion of left front wall of thorax, initial encounter Laceration of face Qualifiers: Encounter type: initial encounter Qualified Code(s): S01.81XA - Laceration without foreign body of other part of head, initial encounter - Discharge Information Referrals: Maurisio Perry MD [Primary Care Provider] - (As scheduled) Forms: ED Department Discharge Additional Instructions: Take your medication as prescribed. Ice any thing that hurts for the next 2 days. Please return if you are worse. - My Orders Last 24 Hours: My Active Orders 02/10/17 22:20 Cervical Spine wo Cont [CT] Stat Head wo Cont [CT] Stat 02/10/17 22:21 Chest Abdomen Pelvis w Cont [CT] Stat Sodium Chloride 0.9% [Saline Flush] 10 ml FLUSH ASDIRECTED PRN Peripheral IV Insertion Adult [OM.PC] Stat 02/10/17 22:22 Peripheral IV Care [RC] . DIRECTED 02/10/17 22:30 Lactated Ringers [Ringers, Lactated] 1,000 ml IV ASDIRECTED - Assessment/Plan Last 24 Hours: My Active Orders 02/10/17 22:20 Cervical Spine wo Cont [CT] Stat Head wo Cont [CT] Stat 02/10/17 22:21 Chest Abdomen Pelvis w Cont [CT] Stat Sodium Chloride 0.9% [Saline Flush] 10 ml FLUSH ASDIRECTED PRN Peripheral IV Insertion Adult [OM.PC] Stat 02/10/17 22:22 Peripheral IV Care [RC] . DIRECTED 02/10/17 22:30 Lactated Ringers [Ringers, Lactated] 1,000 ml IV ASDIRECTED
--- NOTE | 2017-02-12 07:40 | CT ---
Head CT Technique: Multiple axial sections were obtained through the brain. Intravenous contrast was not utilized. Comparison: Previous MRI brain of 12/17/[address] study of 12/15/13. Findings: Ventricles along with basal cisterns and sulci over the convexities appear mildly prominent. Diminished density noted within the periventricular and subcortical white matter which is compatible with small vessel ischemic demyelination change. Previous MRI showed a brainstem infarct which is not well identified on current study due to beam hardening artifact caused by the base of the skull. No other abnormal parenchymal densities are seen. No evidence of intracranial hemorrhage. No midline shift or mass effect is seen. No acute calvarial abnormality is seen. Mild mucosal thickening noted within the ethmoid sinuses which is felt to represent chronic sinusitis. Impression: 1. Senescent change as described above. 2. Sinus findings felt to be chronic. 3. No acute intracranial abnormality is identified. Diagnostic code #2 I agree with preliminary report issued by [facility] (preliminary report dictated on 02/11/17, 12:30 AM Central Time)
--- NOTE | 2017-02-12 07:40 | CT ---
CT cervical spine Technique: Multiple axial sections were obtained from above C1 inferiorly to the mid T1 level. Reconstructed sagittal and coronal images were reviewed. Findings: Scattered anterior endplate osteophytes are seen. Degenerative change noted within the apophyseal joints. Ligamentum nuchal calcification is seen. Slight spondylolisthesis noted at C4-C5, C5-C6 and C6-C7 due to degenerative apophyseal changes. Minimal disc space narrowing noted at C7-T1. Mild degenerative change noted between the dens and anterior arch of C1. Mild bilateral neural foraminal stenosis noted at C3-C4. Other neural foramina are felt to be fairly well patent. Vertebral bodies and posterior arches are intact with no fracture being seen. Impression: 1. Diffuse degenerative change. 2. No acute fracture is identified on CT study of the cervical spine. Diagnostic code #2 I agree with preliminary report issued by [employer] (preliminary report dictated on 02/11/17, 12:37 AM Central Time)
--- NOTE | 2017-02-12 10:35 | CT ---
CT chest Technique: Multiple axial sections through the chest were obtained. Intravenous contrast was not utilized. Comparison: No previous chest CT or chest x-ray. Findings: Mild atherosclerotic calcification seen within the aorta. Aorta shows no aneurysmal dilatation. Mild coronary artery calcification is seen. No mediastinal or hilar adenopathy/mass is seen. No axillary adenopathy is seen. Lungs are clear with no pulmonary contusions. No pleural effusions or pneumothorax is seen. No rib fracture is identified. Diffuse degenerative change noted within the spine. Small nodule noted within the right lobe of the thyroid gland felt to be incidental given the patient's age. Mild soft tissue swelling noted within the left lower chest and left side of the abdomen around the abdominal musculature. Impression: 1. Incidental findings. Soft tissue swelling within the left lateral lower chest and left side of the abdominal musculature. 2. Nothing acute is seen on CT study of the chest. Diagnostic code #2 I agree with preliminary report issued by [employer] (preliminary report dictated on 02/11/17, 12:50 AM Central Time) CT abdomen and pelvis Technique: Multiple axial sections were obtained from above the dome of the diaphragm inferiorly through the pubic symphysis. Intravenous and oral contrast was seen. Oral contrast appears to be due to prior CT exam of 02/09/17. Findings: Minimal low-density lesion noted within the left lobe of the liver believed to be incidental. Liver is otherwise unremarkable. Spleen appears within normal limits. Gallbladder shows no calcified gallstones. Adrenal glands show no nodule or mass. Pancreas is within normal limits. Abnormality within the right kidney again seen. Soft tissue component remains unchanged from previous CT exam and this is felt compatible with necrotic renal cell carcinoma rather than hemorrhagic cyst as questioned on previous study. Simple cyst noted off the right lower kidney which is stable. Left kidney is unremarkable. Aorta shows atherosclerotic change without aneurysmal dilatation. No retroperitoneal adenopathy or mesenteric abnormalities are seen. No pelvic mass or adenopathy is seen. Mild soft tissue swelling noted around the left lateral abdominal musculature. Bone window settings show diffuse degenerative change and scoliosis within the spine. Impression: 1. Large 9.5 cm mass within the right kidney. Findings are felt compatible with necrotic renal cell carcinoma as soft tissue component of this finding is stable from recent abdominal CT indicating a mass and not hemorrhage. 2. Soft tissue swelling within the left abdominal musculature. 3. Other incidental findings. Diagnostic code #9 Agree with preliminary report issued by [facility] ([facility] report dictated on 02/11/17, 12:56 AM Central Time)
== END 2017-02-11 00:40 | disposition home or self-care (01) ==
LOC: JD.ED 22:06
DX: S01.112A Laceration without foreign body of left eyelid and periocular area, initial encounter (principal); S20.212A Contusion of left front wall of thorax, initial encounter; I10 Essential (primary) hypertension; E03.9 Hypothyroidism, unspecified; N28.89 Other specified disorders of kidney and ureter; Z88.1 Allergy status to other antibiotic agents; Z88.8 Allergy status to other drugs, medicaments and biological substances; Z88.2 Allergy status to sulfonamides; Z88.5 Allergy status to narcotic agent; Z79.82 Long term (current) use of aspirin; Z79.899 Other long term (current) drug therapy; E78.00 Pure hypercholesterolemia, unspecified; Z86.73 Personal history of transient ischemic attack (TIA), and cerebral infarction without residual deficits; Z90.49 Acquired absence of other specified parts of digestive tract; W01.10XA Fall on same level from slipping, tripping and stumbling with subsequent striking against unspecified object, initial encounter; Y92.096 Garden or yard of other non-institutional residence as the place of occurrence of the external cause
CPT/HCPCS: 12011; 36415; 70450; 71260; 72125; 74177; 80053; 83690; 85025; 96360; 96361; 99285; J7050; J7120; Q9967; 99284-25

== ENCOUNTER 2017-03-11 15:16 | Emergency (ER) | payer MEDICARE, OTHER ==
[2017-03-11 15:39] VITALS: BP 135/73
[2017-03-11] MEDS ORDERED: Sodium Chloride 0.9% 10 ML Syringe FLUSH PRN (15:57)
--- NOTE | 2017-03-11 16:02 | EDM.PDOC ---
ED HPI GENERAL MEDICAL PROBLEM - General Chief Complaint: Abdominal Pain Stated Complaint: LEFT SIDE ABDOMINAL AREA RECHECK Time Seen by Provider: 03/11/17 15:51 Source of Information: Reports: Patient History Limitations: Reports: No Limitations - History of Present Illness INITIAL COMMENTS - FREE TEXT/NARRATIVE: the patient is a a 6-year-old male presents to ED complaining of left lower quadrant abdominal pain. Describes it as a slight twinge worse with palpation. This took last night. Pain is mild in nature. States he had a BM this morning described as large and hard. Had to strain to pass his stool. Denies any blood present. states the patient had a fall January and had CT of the abdomen/pelvis obtained with no abnormalities. Patient was concerned this could be related to the fall. Patient had no issues after the fall and had been doing well. Patient has no chest pain, shortness of breath,nausea/vomiting, fevers chills, pain to his lower legs, dysuria, or blood within the stool. Onset Date: 03/10/17 Duration: Constant, Waxing/Waning Location: Reports: Abdomen (left lower quadrant) Quality: Reports: Ache Severity: Moderate Improves with: Reports: None Worsens with: Reports: Other (palpation) Context: Reports: Other (unknown) Associated Symptoms: Reports: No Other Symptoms Treatments [employer]: Reports: Other (see below) Left Abdomen Pain Score (Numeric/FACES): 2 - Related Data Allergies Allergy/AdvReac Type Severity Reaction Status Date / Time amoxicillin Allergy Cannot Verified 03/11/17 16:22 Remember levofloxacin [From Levaquin] Allergy Cannot Verified 03/11/17 16:22 Remember nitroglycerin Allergy Cannot Verified 03/11/17 16:22 Remember sulfamethoxazole Allergy Cannot Verified 03/11/17 16:22 [From Bactrim] Remember tramadol Allergy Rash Verified 03/11/17 16:22 trimethoprim [From Bactrim] Allergy Cannot Verified 03/11/17 16:22 Remember meperidine HCl [From Demerol] AdvReac Nausea Verified 03/11/17 16:22 Home Meds: Home Meds Amitriptyline [Elavil] 20 mg PO BEDTIME 05/02/16 [History] Aspirin 81 mg PO DAILY 05/02/16 [History] ClonazePAM [KlonoPIN] 0.5 mg PO BEDTIME 05/02/16 [History] Clopidogrel [Plavix] 75 mg PO DAILY 05/02/16 [History] Gabapentin [Neurontin] 200 mg PO TID 05/02/16 [History] Multivitamin [Multivitamins] 1 cap PO DAILY 05/02/16 [History] Naproxen Sodium [Aleve] 220 mg PO BID 05/02/16 [History] Pantoprazole [Protonix] 40 mg PO DAILY 05/02/16 [History] Pravastatin [Pravachol] 0 mg PO DAILY 05/02/16 [History] Statinzyme 1 tab PO BEDTIME 05/02/16 [History] amLODIPine [Norvasc] 2.5 mg PO DAILY 05/02/16 [History] Past Medical History Other HEENT History: Please see Health History scanned in chart. Cardiovascular History: Reports: High Cholesterol, Hypertension Gastrointestinal History: Reports: Chronic Constipation Neurological History: Reports: Alzheimers Disease, CVA, Neuropathy, Peripheral Other Neuro History: right side stroke. freq falls Endocrine/Metabolic History: Reports: Hypothyroidism Oncologic (Cancer) History: Reports: Bladder - Past Surgical History GI Surgical History: Reports: Appendectomy Social & Family History - Tobacco Use Smoking Status *Q: Never Smoker - Caffeine Use Caffeine Use: Reports: Coffee, Tea - Recreational Drug Use Recreational Drug Use: No - Living Situation & Occupation Living situation: Reports: , with Spouse Occupation: Retired ED ROS GENERAL - Review of Systems Review Of Systems: See Below Constitutional: Denies: Fever, Chills, Malaise, Weakness, Decreased Appetite Respiratory: Reports: No Symptoms Cardiovascular: Reports: No Symptoms GI/Abdominal: Reports: Abdominal Pain, Constipation. Denies: Black Stool, Bloody Stool, Diarrhea, Decreased Appetite, Distension, Flatus, Melena, Nausea, Vomiting : Reports: Frequency. Denies: Dysuria, Hematuria Musculoskeletal: Denies: Back Pain Neurological: Reports: No Symptoms ED EXAM, GI/ABD - Physical Exam Exam: See Below Exam Limited By: No Limitations General Appearance: Alert, WD/WN, No Apparent Distress Ears: Hearing Grossly Normal Nose: Normal Inspection Throat/Mouth: Normal Voice, No Airway Compromise Neck: Normal Inspection, Supple Respiratory/Chest: No Respiratory Distress, Lungs Clear, Normal Breath Sounds, No Accessory Muscle Use, Chest Non-Tender Cardiovascular: Normal Peripheral Pulses, Regular Rate, Rhythm, No Murmur GI/Abdominal: Normal Bowel Sounds, Soft, No Organomegaly, No Distention, Tenderness (left lower quadrant). No: McBurney's Sign, Antony's Sign Back Exam: Normal Inspection. No: CVA Tenderness (L), CVA Tenderness (R) Extremities: Normal Inspection, Non-Tender, No Pedal Edema Neurological: Alert, Oriented, Normal Cognition, No Motor/Sensory Deficits Psychiatric: Normal Affect, Normal Mood Skin Exam: Warm, Dry, Intact, Normal Color, No Rash Course - Vital Signs Last Recorded V/S: Last Vital Signs Temp 97.9 F 03/11/17 15:37 Pulse 82 03/11/17 15:37 Resp 20 03/11/17 15:37 BP 135/73 03/11/17 15:37 Pulse Ox 96 03/11/17 15:37 - Orders/Labs/Meds Labs: Laboratory Tests 03/11/17 03/11/17 Range/Units 16:10 16:10 WBC 6.76 (4.23-9.07) K/mm3 RBC 4.49 L (4.63-6.08) M/mm3 Hgb 13.9 (13.7-17.5) gm/L Hct 39.9 L (40.1-51.0) % MCV 88.9 (79.0-92.2) fl MCH 31.0 (25.7-32.2) pg MCHC 34.8 (32.2-35.5) g/dl RDW Std Deviation 41.2 (35.1-43.9) fL Plt Count 148 L (163-337) K/mm3 MPV 12.4 H (9.4-12.3) fl Neut % (Auto) 65.4 (34.0-67.9) % Lymph % (Auto) 20.0 L (21.8-53.1) % [place] % (Auto) 10.8 (5.3-12.2) % Eos % (Auto) 3.6 (0.8-7.0) Baso % (Auto) 0.1 (0.1-1.2) % Neut # (Auto) 4.42 (1.78-5.38) K/mm3 Lymph # (Auto) 1.35 (1.32-3.57) K/mm3 [place] # (Auto) 0.73 (0.30-0.82) K/mm3 Eos # (Auto) 0.24 (0.04-0.54) K/mm3 Baso # (Auto) 0.01 (0.01-0.08) K/mm3 Sodium 140 (136-145) mEq/L Potassium 3.9 (3.5-5.1) mEq/L Chloride 106 (98-107) mEq/L Carbon Dioxide 29 (21-32) mEq/L Anion Gap 8.9 (5-15) BUN 14 (7-18) mg/dL Creatinine 0.9 (0.7-1.3) mg/dL Est Cr Clr Drug Dosing TNP Estimated GFR (MDRD) > 60 (>60) mL/min BUN/Creatinine Ratio 15.6 (14-18) Glucose 116 H (83-115) mg/dL Calcium 9.0 (8.5-10.1) mg/dL Total Bilirubin 0.5 (0.2-1.0) mg/dL AST 14 L (15-37) U/L ALT 20 (16-63) U/L Alkaline Phosphatase 114 (46-116) U/L C-Reactive Protein < 0.2 (<1.0) mg/dL Total Protein 6.9 (6.4-8.2) g/dl Albumin 3.7 (3.4-5.0) g/dl Globulin 3.2 gm/dL Albumin/Globulin Ratio 1.2 (1-2) Meds: Medications Discontinued Medications Generic Name Dose Route Start Last Admin Trade Name Freq PRN Reason Stop Dose Admin Magnesium Citrate 296 ml 03/11/17 17:25 03/11/17 17:50 Citrate Of Magnesia PO 03/11/17 17:26 296 ml ONETIME ONE Administration Sodium Chloride 10 ml 03/11/17 15:57 03/11/17 16:10 Saline Flush FLUSH 10 ml ASDIRECTED PRN Administration Keep Vein Open - Re-Assessments/Exams Free Text/Narrative Re-Assessment/Exam: 03/11/17 16:01 ordered IVP with labs/studies to be obtained including: CBC, chem 14,CRP, Abdominal xray, and UA. 03/11/17 16:24 X-ray reviewed with Dr. Siegel. Copious amounts of stool present throughout with few air fluid levels. Labs reviewed:CBC and chem 14 were essentially normal.CRP within normal limits. 03/11/17 17:25 patient has requested to be discharged from the hospital. he has not provided a urine sample. We'll discharge the patient home without complete diagnostic testing. At this point x-ray did reveal copious amounts of stool patient may be constipated thus will discharge patient home with instructions and bottle of citroma to take once he arrives at home. Departure - Departure Time of Disposition: 17:27 Disposition: Home, Self-Care 01 Condition: good Clinical Impression: Abdominal pain Qualifiers: Abdominal location: left lower quadrant Qualified Code(s): R10.32 - Left lower quadrant pain Constipation Qualifiers: Constipation type: unspecified constipation type Qualified Code(s): K59.00 - Constipation, unspecified - Discharge Information Instructions: Constipation, Adult, [id number], Abdominal Pain, Adult, Easy-to -Read Referrals: Maurisio Perry MD [Primary Care Provider] - Forms: ED Department Discharge Additional Instructions: Unclear etiology of current complaint. Further diagnostic testing is required. With your history of constipation and copious amounts of stool within the colon via x-ray this may be one of the diagnosis. Will have you take citroma 1/2 bottle this evening and if no BM by tomorrow morning take the other havlf of citroma tomorrow morning. Increase fiber in diet. See your primary care provider this coming week if symptoms have not vastly improved. Return to ED for any new or worsening symptoms.
[2017-03-11] MEDS ORDERED: Magnesium Citrate Solution 296 ML Bottle PO ONE (17:25)
--- NOTE | 2017-03-13 11:13 | CR ---
Abdomen: Supine view of the abdomen was obtained. Scattered bowel gas is seen which appears unremarkable. Scattered degenerative change is seen within the spine with mild scoliosis. Slight vascular calcification is seen. No additional abnormality is noted. Surgical clips seen within the left upper abdomen. Impression: 1. Incidental findings. Diagnostic code #2
== END 2017-03-11 17:30 | disposition home or self-care (01) ==
LOC: JD.ED 15:16
DX: K59.00 Constipation, unspecified (principal); I10 Essential (primary) hypertension; E78.00 Pure hypercholesterolemia, unspecified; G30.9 Alzheimer's disease, unspecified; E03.9 Hypothyroidism, unspecified; Z86.73 Personal history of transient ischemic attack (TIA), and cerebral infarction without residual deficits; Z90.49 Acquired absence of other specified parts of digestive tract; Z79.02 Long term (current) use of antithrombotics/antiplatelets; Z79.82 Long term (current) use of aspirin; Z79.899 Other long term (current) drug therapy; Z88.1 Allergy status to other antibiotic agents; Z88.2 Allergy status to sulfonamides; Z88.8 Allergy status to other drugs, medicaments and biological substances
CPT/HCPCS: 36415; 74000; 80053; 85025; 86140; 99284; A9270; J7050; 99283

== ENCOUNTER 2017-03-15 12:00 | Emergency (ER) | payer MEDICARE, OTHER ==
[2017-03-15 12:13] VITALS: BP 153/133
--- NOTE | 2017-03-15 12:52 | EDM.PDOC ---
ED HPI GENERAL MEDICAL PROBLEM - General Chief Complaint: Neurological Problem Stated Complaint: R SIDE CHECKED/POSS STROKE SYMPTOMS Time Seen by Provider: 03/15/17 12:08 Source of Information: Reports: Patient, Family (), Old Records, RN Notes Reviewed, Other (Neighbor) History Limitations: Reports: Altered Mental Status - History of Present Illness INITIAL COMMENTS - FREE TEXT/NARRATIVE: The patient's family have the patient brought to the ED because of confusion, today. He has had confusion on and off since suffering a stroke in 2013, but today is worse than previous. 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 The family states that he was driving yesterday, but with his confusion today, they had to take his car keys away, causing him to become agitated and distrustful. They were concerned that he might become physically violent, although he does not have a history of such. The patient denies having any pain or discomfort. The patient's PCP is Dr. Perry. He has not been notified of the patient's condition. - Related Data Allergies Allergy/AdvReac Type Severity Reaction Status Date / Time amoxicillin Allergy Cannot Verified 03/15/17 12:12 Remember levofloxacin [From Levaquin] Allergy Cannot Verified 03/15/17 12:12 Remember nitroglycerin Allergy Cannot Verified 03/15/17 12:12 Remember sulfamethoxazole Allergy Cannot Verified 03/15/17 12:12 [From Bactrim] Remember tramadol Allergy Rash Verified 03/15/17 12:12 trimethoprim [From Bactrim] Allergy Cannot Verified 03/15/17 12:12 Remember meperidine HCl [From Demerol] AdvReac Nausea Verified 03/15/17 12:12 Home Meds: Home Meds Amitriptyline [Elavil] 20 mg PO BEDTIME 05/02/16 [History] Aspirin 81 mg PO DAILY 05/02/16 [History] ClonazePAM [KlonoPIN] 0.5 mg PO BEDTIME 05/02/16 [History] Clopidogrel [Plavix] 75 mg PO DAILY 05/02/16 [History] Gabapentin [Neurontin] 200 mg PO TID 05/02/16 [History] Multivitamin [Multivitamins] 1 cap PO DAILY 05/02/16 [History] Naproxen Sodium [Aleve] 220 mg PO BID 05/02/16 [History] Pantoprazole [Protonix] 40 mg PO DAILY 05/02/16 [History] Pravastatin [Pravachol] 0 mg PO DAILY 05/02/16 [History] Statinzyme 1 tab PO BEDTIME 05/02/16 [History] amLODIPine [Norvasc] 2.5 mg PO DAILY 05/02/16 [History] Past Medical History Cardiovascular History: Reports: High Cholesterol, Hypertension Gastrointestinal History: Reports: GERD, PUD Musculoskeletal History: Reports: Arthritis Neurological History: Reports: Alzheimers Disease, Neuropathy, Peripheral Endocrine/Metabolic History: Reports: Hypothyroidism Oncologic (Cancer) History: Reports: Bladder - Past Surgical History HEENT Surgical History: Reports: Tonsillectomy GI Surgical History: Reports: Appendectomy Social & Family History - Tobacco Use Smoking Status *Q: Never Smoker - Caffeine Use Caffeine Use: Reports: None - Alcohol Use Alcohol Use History: Yes Alcohol Use Frequency: Socially - Recreational Drug Use Recreational Drug Use: No - Living Situation & Occupation Living situation: Reports: , with Spouse Occupation: Retired ED ROS GENERAL - Review of Systems Review Of Systems: See Below Constitutional: Reports: No Symptoms HEENT: Reports: No Symptoms Respiratory: Reports: No Symptoms Cardiovascular: Reports: No Symptoms Endocrine: Reports: No Symptoms GI/Abdominal: Reports: Constipation : Reports: No Symptoms Musculoskeletal: Reports: No Symptoms Skin: Reports: No Symptoms Neurological: Reports: No Symptoms Psychiatric: Reports: No Symptoms Hematologic/Lymphatic: Reports: No Symptoms Immunologic: Reports: No Symptoms - Physical Exam Exam: See Below Exam Limited By: Altered Mental Status (Confusion) General Appearance: Alert, WD/WN, No Apparent Distress Eye Exam: Bilateral Eye: EOMI, Normal Inspection, PERRL Ears: Normal External Exam, Normal Canal, Normal TMs, Hearing Loss Nose: Normal Inspection, Normal Mucosa, No Blood Throat/Mouth: Normal Inspection, Normal Lips, Normal Teeth, Normal Gums, Normal Oropharynx, Normal Voice, No Airway Compromise Head Exam: Atraumatic, Normocephalic Neck: Normal Inspection, Supple, Non-Tender, Full Range of Motion. No: Lymphadenopathy (L), Lymphadenopathy (R) Respiratory/Chest: No Respiratory Distress, Lungs Clear, Normal Breath Sounds, No Accessory Muscle Use Cardiovascular: Normal Peripheral Pulses, Regular Rate, Rhythm, No Gallop, No JVD, No Murmur, No Rub GI/Abdominal: Normal Bowel Sounds, Soft, Non-Tender, No Organomegaly, No Distention, No Abnormal Bruit, No Mass (Male) Exam: Deferred Rectal (Males) Exam: Deferred Neuro Exam (Abbreviated): Alert, CN II-XII Intact, No Motor/Sensory Deficits, Confused (Patient was aware that he is in an ED in [place]. He stated the year 1958. He could not recall the month. He stated that the season was spring. He stated that his PCP was Dr. Garcia (actual = Dr. Perry). He correctly stated that he went to [facility]. He was not able to recall the name of the president of [facility]. When asked to draw a clock demonstrating 2:00, he correctly yesy the numbers in a [place], however, but did not draw any hands. When asked what time the clock demonstrated, he then yesy a single line from the 12, with an arrow pointing to the center, stating "12:30", apparently forgetting that he was supposed to draw a clock indicating 2:00.) Extremities: Normal Inspection, Normal Range of Motion, No Pedal Edema, Normal Capillary Refill Psychiatric: Normal Affect Skin Exam: Warm, Dry, Intact, Normal Color, No Rash EKG INTERPRETATION EKG Date: 03/15/17 Time: 12:42 Rhythm: NSR Rate (Beats/Min): 64 [place]: Normal P-Wave: Present QRS: Normal ST-T: Normal QT: Normal Course - Vital Signs Last Recorded V/S: Last Vital Signs Temp 36.0 C 03/15/17 12:05 Pulse 75 03/15/17 12:05 Resp 18 03/15/17 12:05 BP 153/133 H 03/15/17 12:05 Pulse Ox 97 03/15/17 12:05 - Orders/Labs/Meds Orders: Active Orders 24 hr Category Date Time Status Bladder Scan [RC] ONETIME Care 03/15/17 12:40 Inactive EKG Documentation Completion [RC] STAT Care 03/15/17 12:38 Active Labs: Laboratory Tests 03/15/17 03/15/17 03/15/17 Range/Units 12:40 12:40 13:00 WBC 7.47 (4.23-9.07) K/mm3 RBC 4.60 L (4.63-6.08) M/mm3 Hgb 14.2 (13.7-17.5) gm/L Hct 41.5 (40.1-51.0) % MCV 90.2 (79.0-92.2) fl MCH 30.9 (25.7-32.2) pg MCHC 34.2 (32.2-35.5) g/dl RDW Std Deviation 41.9 (35.1-43.9) fL Plt Count 168 (163-337) K/mm3 MPV 11.8 (9.4-12.3) fl Neutrophils % (Manual) 73 H (40-60) % Band Neutrophils % 1 (0-10) % Lymphocytes % (Manual) 21 (20-40) % Atypical Lymphs % 0 % Monocytes % (Manual) 3 (2-10) % Eosinophils % (Manual) 2 (0.8-7.0) % Basophils % (Manual) 0 L (0.2-1.2) Platelet Estimate Adequate RBC Morph Comment Normal Sodium (136-145) mEq/L Potassium (3.5-5.1) mEq/L Chloride (98-107) mEq/L Carbon Dioxide (21-32) mEq/L Anion Gap (5-15) BUN (7-18) mg/dL Creatinine (0.7-1.3) mg/dL Est Cr Clr Drug Dosing Estimated GFR (MDRD) (>60) mL/min BUN/Creatinine Ratio (14-18) Glucose (83-115) mg/dL Calcium (8.5-10.1) mg/dL Total Bilirubin (0.2-1.0) mg/dL AST (15-37) U/L ALT (16-63) U/L Alkaline Phosphatase (46-116) U/L Troponin I (0.00-0.056) ng/mL Total Protein (6.4-8.2) g/dl Albumin (3.4-5.0) g/dl Globulin gm/dL Albumin/Globulin Ratio (1-2) TSH 3rd Generation (0.358-3.74) uIU/mL Urine Color Yellow (Yellow) Urine Appearance Clear (Clear) Urine pH 7.0 (5.0-8.0) Ur Specific [place] 1.015 (1.005-1.030) Urine Protein Negative (Negative) Urine Glucose (UA) Negative (Negative) Urine Ketones Negative (Negative) Urine Occult Blood Negative (Negative) Urine Nitrite Negative (Negative) Urine Bilirubin Negative (Negative) Urine Urobilinogen 0.2 (0.2-1.0) Ur Leukocyte Esterase Negative (Negative) Urine RBC Not seen (0-5) /hpf Urine WBC 0-5 (0-5) /hpf Ur Epithelial Cells Not seen (0-5) /hpf Urine Bacteria Few (FEW) /hpf Urine Mucus Not seen (FEW) /hpf Urine Opiates Screen Negative (NEGATIVE) Ur Buprenorphine Scrn Negative (NEGATIVE) Ur Oxycodone Screen Negative (NEGATIVE) Urine Methadone Screen Negative (NEGATIVE) Ur Propoxyphene Screen Negative (NEGATIVE) Ur Barbiturates Screen Negative (NEGATIVE) Ur Tricyclics Screen Presumptive positive H (NEGATIVE) Ur Phencyclidine Scrn Negative (NEGATIVE) Ur Amphetamine Screen Negative (NEGATIVE) U Methamphetamines Scrn Negative (NEGATIVE) U Benzodiazepines Scrn Negative (NEGATIVE) U Cocaine Metab Screen Negative (NEGATIVE) U Marijuana (THC) Screen Negative (NEGATIVE) Ethyl Alcohol (0.00) gm% 03/15/17 Range/Units 13:00 WBC (4.23-9.07) K/mm3 RBC (4.63-6.08) M/mm3 Hgb (13.7-17.5) gm/L Hct (40.1-51.0) % MCV (79.0-92.2) fl MCH (25.7-32.2) pg MCHC (32.2-35.5) g/dl RDW Std Deviation (35.1-43.9) fL Plt Count (163-337) K/mm3 MPV (9.4-12.3) fl Neutrophils % (Manual) (40-60) % Band Neutrophils % (0-10) % Lymphocytes % (Manual) (20-40) % Atypical Lymphs % % Monocytes % (Manual) (2-10) % Eosinophils % (Manual) (0.8-7.0) % Basophils % (Manual) (0.2-1.2) Platelet Estimate RBC Morph Comment Sodium 142 (136-145) mEq/L Potassium 4.3 (3.5-5.1) mEq/L Chloride 105 (98-107) mEq/L Carbon Dioxide 32 (21-32) mEq/L Anion Gap 9.3 (5-15) BUN 17 (7-18) mg/dL Creatinine 1.0 (0.7-1.3) mg/dL Est Cr Clr Drug Dosing TNP Estimated GFR (MDRD) > 60 (>60) mL/min BUN/Creatinine Ratio 17.0 (14-18) Glucose 97 (83-115) mg/dL Calcium 9.0 (8.5-10.1) mg/dL Total Bilirubin 0.6 (0.2-1.0) mg/dL AST 14 L (15-37) U/L ALT 24 (16-63) U/L Alkaline Phosphatase 101 (46-116) U/L Troponin I < 0.017 (0.00-0.056) ng/mL Total Protein 7.0 (6.4-8.2) g/dl Albumin 3.7 (3.4-5.0) g/dl Globulin 3.3 gm/dL Albumin/Globulin Ratio 1.1 (1-2) TSH 3rd Generation 0.967 (0.358-3.74) uIU/mL Urine Color (Yellow) Urine Appearance (Clear) Urine pH (5.0-8.0) Ur Specific [place] (1.005-1.030) Urine Protein (Negative) Urine Glucose (UA) (Negative) Urine Ketones (Negative) Urine Occult Blood (Negative) Urine Nitrite (Negative) Urine Bilirubin (Negative) Urine Urobilinogen (0.2-1.0) Ur Leukocyte Esterase (Negative) Urine RBC (0-5) /hpf Urine WBC (0-5) /hpf Ur Epithelial Cells (0-5) /hpf Urine Bacteria (FEW) /hpf Urine Mucus (FEW) /hpf Urine Opiates Screen (NEGATIVE) Ur Buprenorphine Scrn (NEGATIVE) Ur Oxycodone Screen (NEGATIVE) Urine Methadone Screen (NEGATIVE) Ur Propoxyphene Screen (NEGATIVE) Ur Barbiturates Screen (NEGATIVE) Ur Tricyclics Screen (NEGATIVE) Ur Phencyclidine Scrn (NEGATIVE) Ur Amphetamine Screen (NEGATIVE) U Methamphetamines Scrn (NEGATIVE) U Benzodiazepines Scrn (NEGATIVE) U Cocaine Metab Screen (NEGATIVE) U Marijuana (THC) Screen (NEGATIVE) Ethyl Alcohol 0.00 (0.00) gm% - Radiology Interpretation Free Text/Narrative:: CT of the head without contrast is read by Dr. Titus as: 1. Stable senescent change from prior head CT exam. 2. Sinus findings which are felt to be stable and incidental. 3. No acute intracranial abnormality is identified. 2 view chest radiograph is read by Dr. Titus as "Incidental findings. 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 03/15/17 14:16 Test results discussed with the patient's . Today's workup is grossly unremarkable. No infection found. I suspect that the patient's worsening confusion is manifest of his dementia. I do not see an indication for hospitalization, and the patient's believes that she can continue to take care of him at home, however, she appears to be overwhelmed not only by the patient's dementia, but she also reported that their daughter is battling breast cancer. She acknowledges that the patient may require fdc placement in the not too distant future. I am recommending that the patient not drive again, ever, and I am recommending that he follow up with their PCP, Dr. Perry, this week. The patient's neighbor left, but will be returning. The patient's asked that I discussed today's findings with him when he returns. Departure - Departure Time of Disposition: 14:18 Disposition: Home, Self-Care 01 Condition: Fair Clinical Impression: Dementia - Discharge Information Referrals: Maurisio Perry MD [Primary Care Provider] - Forms: ED Department Discharge Additional Instructions: Mr. Palmer was seen in the emergency room for worsening confusion and agitation. Workup in the ER included blood work, a urinalysis, a chest x-ray, a CT scan of his head, and an ECG. His entire workup was unremarkable. He has not suffered a stroke, and his CT scan indicates that he has not previously suffered a stroke. No infection was found. It is MOST LIKELY that his confusion is the result of his dementia. It is important that he NOT DRIVE, EVER AGAIN. We are recommending that you have him follow-up with Dr. Orlando this week. If any other problems, please do not hesitate to return to the ER. - My Orders Last 24 Hours: My Active Orders 03/15/17 12:38 EKG Documentation Completion [RC] STAT 03/15/17 12:40 Bladder Scan [RC] ONETIME - Assessment/Plan Last 24 Hours: My Active Orders 03/15/17 12:38 EKG Documentation Completion [RC] STAT 03/15/17 12:40 Bladder Scan [RC] ONETIME
--- NOTE | 2017-03-15 13:15 | CT ---
Head CT Technique: Multiple axial sections through the brain were obtained. Intravenous contrast was not utilized. Comparison: Previous head CT study of 02/10/17. Findings: Ventricles along with basal cisterns and sulci over the convexities are mildly prominent. Diminished density noted within the periventricular and subcortical white matter which is compatible with small vessel ischemic demyelination change. Old lacunar infarcts are noted within the left basal ganglia and within the left side of the thalamus. No other abnormal parenchymal densities are seen. No evidence of intracranial hemorrhage. No midline shift or mass effect is seen. Bone window settings were reviewed which shows mild mucosal thickening within the ethmoid sinuses and frontal sinuses. No acute Impression: 1. Stable senescent change from prior head CT exam. 2. Sinus findings which are felt to be stable and incidental. 3. No acute intracranial abnormality is identified. Diagnostic code #2
--- NOTE | 2017-03-15 13:32 | CR ---
Chest: Two views of the chest were obtained. Comparison: No previous chest x-ray, previous chest CT of 02/10/17 is available. Degenerative spurring is noted throughout the spine. Heart size is normal. Mild tortuosity of the thoracic aorta is seen. Lungs are clear. Several surgical clips are noted at the gastroesophageal junction and within the left upper abdomen. Impression: 1. Incidental findings. Nothing acute is appreciated. Diagnostic code #2
== END 2017-03-15 16:25 | disposition home or self-care (01) ==
LOC: JD.ED 12:00
DX: G30.9 Alzheimer's disease, unspecified (principal); F02.80 Dementia in other diseases classified elsewhere, unspecified severity, without behavioral disturbance, psychotic disturbance, mood disturbance, and anxiety; E03.9 Hypothyroidism, unspecified; I10 Essential (primary) hypertension; E78.00 Pure hypercholesterolemia, unspecified; K21.9 Gastro-esophageal reflux disease without esophagitis; Z90.49 Acquired absence of other specified parts of digestive tract; Z98.890 Other specified postprocedural states; Z85.51 Personal history of malignant neoplasm of bladder; Z79.82 Long term (current) use of aspirin; Z79.02 Long term (current) use of antithrombotics/antiplatelets; Z79.899 Other long term (current) drug therapy; Z88.1 Allergy status to other antibiotic agents; Z88.2 Allergy status to sulfonamides; Z88.8 Allergy status to other drugs, medicaments and biological substances; Z88.5 Allergy status to narcotic agent
CPT/HCPCS: 36415; 70450; 71020; 80053; 80306; 81001; 84443; 84484; 85025; 93005; 99285; G0480; P9612; 99283